=== PATIENT | female | born 1970 | race Caucasian/White ===

== ENCOUNTER 2023-06-12 11:03 | Emergency (ER) | payer MEDICAID, OTHER ==
[~2023-06-12] VITALS: Ht 160 cm; Wt 80.0 kg
[~2023-06-12 11:03] MED LIST: LEVA15HF4 IH; NAPR-1154 PO; NO HOME MEDS; PRED20TA PO
[2023-06-12 11:19] VITALS: BP 147/88; PULSE 80; RESP 18; TEMP 97.8; O2SAT 97
[2023-06-12] MEDS ORDERED: TETanus/Pertussis (Acell)/Diphther VAC/PF (Tdap-Adult) 0.5ml syringe IMVAC ONE (13:15)
[2023-06-12] MEDS ORDERED: IBUP-1986 PO (18:10)
== END 2023-06-12 14:17 | disposition home or self-care (01) ==
LOC: ER 11:04
DX: S61.211A Laceration without foreign body of left index finger without damage to nail, initial encounter (principal); J45.909 Unspecified asthma, uncomplicated; F15.90 Other stimulant use, unspecified, uncomplicated; Z56.0 Unemployment, unspecified; Z72.89 Other problems related to lifestyle; Z88.5 Allergy status to narcotic agent; Z79.899 Other long term (current) drug therapy; W26.8XXA Contact with other sharp object(s), not elsewhere classified, initial encounter; Y93.89 Activity, other specified; Y99.8 Other external cause status
CPT/HCPCS: 73140; 90471; 90715; 99283; A4565; A6258; A6449

== ENCOUNTER 2023-06-14 16:36 | Emergency (ER) | payer OTHER ==
[~2023-06-14] VITALS: Ht 160 cm; Wt 80.0 kg
[~2023-06-14 16:36] MED LIST changes: +IBUP-1986 PO
[2023-06-14 16:43] VITALS: BP 133/89; PULSE 68; RESP 15; TEMP 98.8; O2SAT 97
[2023-06-14] MEDS ORDERED: SULF1TAB45 PO ×3 (17:58→18:16)
[2023-06-14] MEDS ORDERED: CEPH250T PO ×3 (17:58→18:16)
[2023-06-14] MEDS ORDERED: sulfamethoxazole/trimethoprim DS (800/160mg) tablet PO ONE (18:00)
[2023-06-14] MEDS ORDERED: cephalexin 250mg capsule PO ONE (18:00)
== END 2023-06-14 18:08 | disposition home or self-care (01) ==
LOC: ER 16:37
DX: L08.9 Local infection of the skin and subcutaneous tissue, unspecified (principal); J45.909 Unspecified asthma, uncomplicated; F15.90 Other stimulant use, unspecified, uncomplicated; Z88.5 Allergy status to narcotic agent; Z79.2 Long term (current) use of antibiotics; Z79.1 Long term (current) use of non-steroidal anti-inflammatories (NSAID); Z79.899 Other long term (current) drug therapy; Z90.49 Acquired absence of other specified parts of digestive tract
CPT/HCPCS: 99283

== ENCOUNTER 2024-09-30 05:41 | Emergency (ER) | payer BC, OTHER ==
[~2024-09-30] VITALS: Ht 160 cm; Wt 77.0 kg
[~2024-09-30 05:41] MED LIST changes: +CEPH250T PO; +SULF1TAB45 PO
[2024-09-30 08:19] VITALS: BP 134/84; PULSE 82; O2SAT 100
[2024-09-30] MEDS: pantoprazole 40 MG vial IV ONE (09:06)
[2024-09-30] MEDS: ondansetron/PF 4mg/2ml inj IV ONE (09:06)
[2024-09-30 09:07] VITALS: RESP 16
[2024-09-30] MEDS: ketorolac trometh 15mg/ml vial 15 MG/ML ML IV ONE (09:07)
[2024-09-30] MEDS: normal saline 1000ML IV soln IVB ONE (09:13)
[2024-09-30] MEDS ORDERED: SUMA25TA9 PO (10:09)
[2024-09-30] MEDS: SUMAtriptan succ. 6 MG/0.5ml vial SQ ONE (10:20)
[2024-09-30 10:26] VITALS: TEMP 97.8
== END 2024-09-30 10:32 | disposition home or self-care (01) ==
LOC: ER 05:42
DX: G43.909 Migraine, unspecified, not intractable, without status migrainosus (principal); J45.909 Unspecified asthma, uncomplicated; F15.90 Other stimulant use, unspecified, uncomplicated; R11.10 Vomiting, unspecified; Z88.5 Allergy status to narcotic agent; Z88.6 Allergy status to analgesic agent; Z79.899 Other long term (current) drug therapy; Z90.49 Acquired absence of other specified parts of digestive tract; Z90.710 Acquired absence of both cervix and uterus
CPT/HCPCS: 96361; 96372; 96374; 96375; 99284; J1885; J2405; J2470; J3030; J7030